=== PATIENT | male | born 1970 | race Asian ===

== ENCOUNTER → 2019-06-04 | Outpatient (CLI) | payer OTHER ==
[~2019-06-04] MED LIST: ESOM20CA31 PO; HYDR25TA PO; LOSA50TA64 PO
== END | disposition home or self-care (01) ==
LOC: EMPHLTH 11:48
PROVIDERS: ATTEND Internal Medicine
DX: R76.11 Nonspecific reaction to tuberculin skin test without active tuberculosis (principal)